=== PATIENT | male | born 1945 | race Caucasian/White ===

== ENCOUNTER 2017-07-27 09:28 | Observation (INO) ==
--- NOTE | 2017-07-27 09:55 | Emergency Department Note ---
Disposition Clinical Impression: Elevated troponin Chest pain Qualifiers: Chest pain type: unspecified Qualified Code(s): R07.9 - Chest pain, unspecified Disposition: Admitted As Inpatient Condition: Fair Referrals: NONE,PCP [Primary Care Provider] - Forms: ED Satisfaction Letter, Work/School Release General Adult HPI - General Chief complaint: ED General Medical Stated complaint: "not feeling well, out of meds" Time Seen by Provider: 07/27/17 09:33 Source: patient, EMS Limitations: no limitations - History of Present Illness HPI Narrative: 71 M c PMHx of arthritis, atrial fibrillation, cancer, COPD, hypertension, seizures, thyroid disease, and Bipolar Disorder, Homelessness reports to the ED c/o of being out of his medications and being "tired, hungry, and cold." He reports intermittent sharp left sided chest pain, SOB, Syncope. Patient reports right now he is not having any chest pain. His only complaint at this time is that his extremities are sore and he is hungry. He is a poor historian. He was seen on 06/13/17 at [facility] for same complaint of being out of his medications. Patient was established at a residential upon discharge at that time. Patient reports he left the residential because they would not let him smoke or do what he wanted when he wanted. Patient has a adult protective caseworker at the [facility]. He called them this morning and they told him to come into the ED. Per our rn social services patient is hooked up Pain Scale: 0 - Related Data Home Medications Medication Instructions Recorded Confirmed Acetaminophen [Tylenol] 650 mg PO Q6HR PRN 07/27/17 07/27/17 Albuterol Sulfate [Ventolin Hfa] 2 puff IH QID PRN 07/27/17 07/27/17 Fluticasone/Vilanterol [Breo 1 each IH DAILY 07/27/17 07/27/17 Ellipta 100-25 Mcg INH] Ipratropium [Atrovent Inhaler] 2 puff IH Q6HR PRN 07/27/17 07/27/17 LevETIRAcetam [Keppra] 500 mg PO BID 07/27/17 07/27/17 Levothyroxine [Synthroid] 100 mcg PO DAILY 07/27/17 07/27/17 Lisinopril [Zestril] 20 mg PO DAILY 07/27/17 07/27/17 Metoprolol Tartrate 25 mg PO BID 07/27/17 07/27/17 Mupirocin Calcium [Bactroban] 15 gm TP DAILY 07/27/17 07/27/17 Polyethylene Glycol 3350 [MiraLAX] 17 gm PO DAILY 07/27/17 07/27/17 Triamcinolone Acet 0.1% CRM 1 appl TP DAILY 07/27/17 07/27/17 [Kenalog] Warfarin [Coumadin] 7.5 mg PO DAILY 07/27/17 07/27/17 Allergies Allergy/AdvReac Type Severity Reaction Status Date / Time No Known Allergies Allergy Verified 06/13/17 20:01 Past Medical History - Past Medical History Medical history: Reports: arthritis, atrial fibrillation, cancer, COPD, hypertension, seizures, thyroid disease, other Psychiatric history: Reports: bipolar - Social History Smoking Status: Current every day smoker Smokeless Tobacco Status: No Alcohol use: Reports: rarely Drug use: Reports: none Physical Exam - General Limitations: no limitations General appearance: alert, in no apparent distress - Head Head exam: atraumatic, normocephalic - Eye Eye exam: Present: PERRL, EOMI - ENT ENT exam: normal oropharynx, mucous membranes dry - Neck Neck exam: Present: full ROM, trachea midline - Chest Chest inspection: Present: symmetric chest wall rise. Absent: tenderness - Respiratory Respiratory exam: Present: normal lung sounds bilaterally. Absent: respiratory distress - Cardiovascular Cardiovascular exam: Present: regular rate, normal rhythm, normal heart sounds - Abdominal Exam Abdominal exam: Present: soft, tenderness Abdominal tenderness: Present: diffuse - Extremities Exam Extremities exam: Present: full ROM. Absent: pedal edema - Neurological Exam Neurological exam: Present: alert - Psychiatric Psychiatric exam: Present: normal affect, normal mood - Skin Skin exam: Present: warm, dry Course Course Narrative: Will run basic work up for vague general complaints. CBC, BMP, UA, CXR, EKG, Troponin Will need social work consult - Reevaluation(s) Reevaluation #1: Troponin 0.06 no prior labs in our system not in out patient system at all. Will give ASA, Trend Troponin. Will check CT head and CT abd for his headache and belly pain. Likely will require admission. Reevaluation #2: CT head and Abd negative. awaiting call back from hospitalist for admission. Vital Signs Temperature 98 F 07/27/17 09:34 Pulse Rate 72 07/27/17 09:34 Respiratory Rate 18 07/27/17 09:34 Blood Pressure 121/76 07/27/17 09:34 O2 Sat by Pulse Oximetry 92 07/27/17 09:34 Temperature 98 F 07/27/17 09:34 Pulse Rate 68 07/27/17 13:07 Respiratory Rate 16 07/27/17 13:07 Blood Pressure 157/90 07/27/17 13:07 O2 Sat by Pulse Oximetry 97 07/27/17 13:07 Oxygen Delivery Oxygen Delivery Room Air Medical Decision Making - MDM Narrative Medical decision making narrative: Patient is homeless gentleman with a myriad of complaints. Patient reports chest pain yesterday. Troponin 0.06 no prior for comparrison. Hypernatremic, hypochloremic. Will admit to hospitalist for full cardiac work up. - Lab Data Lab results reviewed: Yes I reviewed the patient's lab results. Result diagrams: 07/27/17 10:12 07/27/17 10:12 Lab Results 07/27/17 07/27/17 07/27/17 Range/Units 10:12 10:12 10:12 WBC 6.8 (4.3-11.1) K/mcL RBC 3.71 L (4.19-5.50) M/mcL Hgb 11.5 L (12.9-16.9) g/dL Hct 33.9 L (37.5-50.1) % MCV 91.4 (83.0-100.0) fL MCH 31.0 (28.0-33.3) pg MCHC 33.9 (31.6-35.5) g/dL RDW 12.4 (11.5-14.5) % Plt Count 219 (140-400) K/mcL MPV 9.8 (9.4-12.4) fL Immature Gran % 0.4 (0-4) % Seg Neutrophils % 70.3 % Lymphocytes % 12.3 % Monocytes % 12.9 % Eosinophils % 3.7 % Basophils % 0.4 % Neutrophils # 4.8 (1.6-8.9) K/mcL Lymphocytes # 0.8 (0.6-4.6) K/mcL Monocytes # 0.9 (0.0-1.3) K/mcL Eosinophils # 0.3 (0.0-0.6) K/mcL Basophils # 0.0 (0.0-0.2) K/mcL Sodium 127 L (136-145) mEq/L Potassium 4.3 (3.5-5.1) mEq/L Chloride 95 L (98-107) mEq/L Carbon Dioxide 26 (23-29) mEq/L BUN 18 (8-23) mg/dL Creatinine 0.77 (0.70-1.30) mg/dL Est GFR ( Amer) > 60 (> 60) Est GFR (Non-Af Amer) > 60 (> 60) BUN/Creatinine Ratio 23 (6-26) Glucose 90 (70-105) mg/dL Calculated Osmolality 265 L (280-300) Calcium 9.6 (8.6-10.3) mg/dL Total Bilirubin 0.6 (0.3-1.0) mg/dL AST 18 (13-39) Units/L ALT 10 (7-52) Units/L Alkaline Phosphatase 95 (34-104) Units/L Troponin I 0.06 H* (< 0.04) ng/mL Serum Total Protein 6.9 (6.4-8.9) g/dL Albumin 3.9 (3.5-5.7) g/dL Globulin 3.0 (2.4-3.5) g/dL Albumin/Globulin Ratio 1.3 (1.1-2.2) Urine Color (Yellow) Urine Clarity (Clear) Urine pH (5.0-8.0) pH Units Ur Specific [place] (1.010-1.025) Urine Protein (Neg-Trace) mg/dL Urine Glucose (UA) (Normal) mg/dL Urine Ketones (Negative) mg/dL Urine Blood (Negative) Urine Nitrite (Negative) Urine Bilirubin (Negative) Urine Urobilinogen (Normal) mg/dL Ur Leukocyte Esterase (Negative) Urine Microscopic RBC (0-3) per hpf Urine Microscopic WBC (0-3) per hpf Ur Squamous Epith Cells (None-Few) per lpf Urine Bacteria (None-Few) per hpf Hyaline Casts (None-Few) per lpf Ur Culture Indicated? (NO) 07/27/17 Range/Units 11:50 WBC (4.3-11.1) K/mcL RBC (4.19-5.50) M/mcL Hgb (12.9-16.9) g/dL Hct (37.5-50.1) % MCV (83.0-100.0) fL MCH (28.0-33.3) pg MCHC (31.6-35.5) g/dL RDW (11.5-14.5) % Plt Count (140-400) K/mcL MPV (9.4-12.4) fL Immature Gran % (0-4) % Seg Neutrophils % % Lymphocytes % % Monocytes % % Eosinophils % % Basophils % % Neutrophils # (1.6-8.9) K/mcL Lymphocytes # (0.6-4.6) K/mcL Monocytes # (0.0-1.3) K/mcL Eosinophils # (0.0-0.6) K/mcL Basophils # (0.0-0.2) K/mcL Sodium (136-145) mEq/L Potassium (3.5-5.1) mEq/L Chloride (98-107) mEq/L Carbon Dioxide (23-29) mEq/L BUN (8-23) mg/dL Creatinine (0.70-1.30) mg/dL Est GFR ( Amer) (> 60) Est GFR (Non-Af Amer) (> 60) BUN/Creatinine Ratio (6-26) Glucose (70-105) mg/dL Calculated Osmolality (280-300) Calcium (8.6-10.3) mg/dL Total Bilirubin (0.3-1.0) mg/dL AST (13-39) Units/L ALT (7-52) Units/L Alkaline Phosphatase (34-104) Units/L Troponin I (< 0.04) ng/mL Serum Total Protein (6.4-8.9) g/dL Albumin (3.5-5.7) g/dL Globulin (2.4-3.5) g/dL Albumin/Globulin Ratio (1.1-2.2) Urine Color Yellow (Yellow) Urine Clarity Clear (Clear) Urine pH 7.0 (5.0-8.0) pH Units Ur Specific [place] 1.010 (1.010-1.025) Urine Protein 100 H (Neg-Trace) mg/dL Urine Glucose (UA) Normal (Normal) mg/dL Urine Ketones Negative (Negative) mg/dL Urine Blood Trace H (Negative) Urine Nitrite Negative (Negative) Urine Bilirubin Negative (Negative) Urine Urobilinogen Normal (Normal) mg/dL Ur Leukocyte Esterase Negative (Negative) Urine Microscopic RBC 0-3 (0-3) per hpf Urine Microscopic WBC 3-5 H (0-3) per hpf Ur Squamous Epith Cells Many H (None-Few) per lpf Urine Bacteria None Seen (None-Few) per hpf Hyaline Casts None Seen (None-Few) per lpf Ur Culture Indicated? NO (NO) - Radiology Data Radiology results reviewed: Yes I reviewed the patient's radiology results. - EKG Data EKG #1 EKG attestation: Yes I reviewed and interpreted this EKG. EKG results narrative: EKG 07/27/17 10:18 Sinus Rhythm, Rate 70 bpm, CT 159, QRS 93, QT/QTc 416/437 Occassional PVCs, no prior for comparison. Attestation Statement - Attestation Attestation: I, Pierce Bolden DO, examined this patient [id number] and my medical decision-making was reviewed with Surya Pryor PGY-1 Resident Physician. I agree with the documented findings, disposition and treatment plan as described except to the extent set forth below. Please see my progress notes for details.
[2017-07-27 10:52] LABS: Basophils % 0.4 %; Eosinophils # 0.3 K/mcL (0.0-0.6); Eosinophils % 3.7 %; Hematocrit 33.9 % (37.5-50.1); Hemoglobin 11.5 g/dL (12.9-16.9); Immature Granulocytes % 0.4 % (0-4); Lymphocytes # 0.8 K/mcL (0.6-4.6); Lymphocytes % 12.3 %; Mean Corpuscular HGB Conc 33.9 g/dL (31.6-35.5); Mean Corpuscular Volume 91.4 fL (83.0-100.0); Mean Platelet Volume 9.8 fL (9.4-12.4); Monocytes # 0.9 K/mcL (0.0-1.3); Monocytes % 12.9 %; Neutrophils # 4.8 K/mcL (1.6-8.9); Platelet Count 219 K/mcL (140-400); Red Blood Count 3.71 M/mcL (4.19-5.50); Red Cell Distribution Width 12.4 % (11.5-14.5); Segmented Neutrophils % 70.3 %
[2017-07-27 11:09] LABS: Alanine Aminotransferase 10 Units/L (7-52); Albumin 3.9 g/dL (3.5-5.7); Albumin/Globulin Ratio 1.3 (1.1-2.2); Alkaline Phosphatase 95 Units/L (34-104); Aspartate Amino Transferase 18 Units/L (13-39); BUN/Creatinine Ratio 23 (6-26); Bilirubin,Total 0.6 mg/dL (0.3-1.0); Blood Urea Nitrogen 18 mg/dL (8-23); Calcium 9.6 mg/dL (8.6-10.3); Carbon Dioxide 26 mEq/L (23-29); Chloride 95 mEq/L (98-107); Glucose 90 mg/dL (70-105); Osmolality,Calculated 265 (280-300); Potassium 4.3 mEq/L (3.5-5.1); Sodium 127 mEq/L (136-145); Total Protein 6.9 g/dL (6.4-8.9); eGFR For African Americans > 60 (> 60); eGFR For Non-African Americans > 60 (> 60)
[2017-07-27] MEDS ORDERED: Aspirin 81 MG TAB.CHEW PO STA (11:13)
--- NOTE | 2017-07-27 12:05 | Emergency Department Note ---
Disposition Clinical Impression: Elevated troponin, Chest pain Disposition: Admitted As Inpatient Condition: Fair Referrals: NONE,PCP [Primary Care Provider] - Forms: ED Satisfaction Letter, Work/School Release Time of Disposition: 13:04 General Adult HPI - General Chief complaint: ED General Medical Stated complaint: "not feeling well, out of meds" Time Seen by Provider: 07/27/17 09:33 Source: patient, EMS Limitations: no limitations - History of Present Illness Pain Scale: 0 - Related Data Home Medications Medication Instructions Recorded Confirmed Acetaminophen [Tylenol] 650 mg PO Q6HR PRN 07/27/17 07/27/17 Albuterol Sulfate [Ventolin Hfa] 2 puff IH QID PRN 07/27/17 07/27/17 Fluticasone/Vilanterol [Breo 1 each IH DAILY 07/27/17 07/27/17 Ellipta 100-25 Mcg INH] Ipratropium [Atrovent Inhaler] 2 puff IH Q6HR PRN 07/27/17 07/27/17 LevETIRAcetam [Keppra] 500 mg PO BID 07/27/17 07/27/17 Levothyroxine [Synthroid] 100 mcg PO DAILY 07/27/17 07/27/17 Lisinopril [Zestril] 20 mg PO DAILY 07/27/17 07/27/17 Metoprolol Tartrate 25 mg PO BID 07/27/17 07/27/17 Mupirocin Calcium [Bactroban] 15 gm TP DAILY 07/27/17 07/27/17 Polyethylene Glycol 3350 [MiraLAX] 17 gm PO DAILY 07/27/17 07/27/17 Triamcinolone Acet 0.1% CRM 1 appl TP DAILY 07/27/17 07/27/17 [Kenalog] Warfarin [Coumadin] 7.5 mg PO DAILY 07/27/17 07/27/17 Allergies Allergy/AdvReac Type Severity Reaction Status Date / Time No Known Allergies Allergy Verified 06/13/17 20:01 Past Medical History - Past Medical History Medical history: Reports: arthritis, atrial fibrillation, cancer, COPD, hypertension, seizures, thyroid disease, other Psychiatric history: Reports: bipolar - Social History Smoking Status: Current every day smoker Smokeless Tobacco Status: No Alcohol use: Reports: rarely Drug use: Reports: none Physical Exam - General Limitations: no limitations General appearance: alert, in no apparent distress Course Vital Signs Temperature 98 F 07/27/17 09:34 Pulse Rate 72 07/27/17 09:34 Respiratory Rate 18 07/27/17 09:34 Blood Pressure 121/76 07/27/17 09:34 O2 Sat by Pulse Oximetry 92 07/27/17 09:34 Temperature 98 F 07/27/17 09:34 Pulse Rate 68 07/27/17 10:24 Respiratory Rate 16 07/27/17 10:24 Blood Pressure 121/76 07/27/17 10:24 O2 Sat by Pulse Oximetry 97 07/27/17 10:24 Oxygen Delivery Oxygen Delivery Room Air Medical Decision Making - Lab Data Result diagrams: 07/27/17 10:12 07/27/17 10:12 Lab Results 07/27/17 07/27/17 07/27/17 Range/Units 10:12 10:12 10:12 WBC 6.8 (4.3-11.1) K/mcL RBC 3.71 L (4.19-5.50) M/mcL Hgb 11.5 L (12.9-16.9) g/dL Hct 33.9 L (37.5-50.1) % MCV 91.4 (83.0-100.0) fL MCH 31.0 (28.0-33.3) pg MCHC 33.9 (31.6-35.5) g/dL RDW 12.4 (11.5-14.5) % Plt Count 219 (140-400) K/mcL MPV 9.8 (9.4-12.4) fL Immature Gran % 0.4 (0-4) % Seg Neutrophils % 70.3 % Lymphocytes % 12.3 % Monocytes % 12.9 % Eosinophils % 3.7 % Basophils % 0.4 % Neutrophils # 4.8 (1.6-8.9) K/mcL Lymphocytes # 0.8 (0.6-4.6) K/mcL Monocytes # 0.9 (0.0-1.3) K/mcL Eosinophils # 0.3 (0.0-0.6) K/mcL Basophils # 0.0 (0.0-0.2) K/mcL Sodium 127 L (136-145) mEq/L Potassium 4.3 (3.5-5.1) mEq/L Chloride 95 L (98-107) mEq/L Carbon Dioxide 26 (23-29) mEq/L BUN 18 (8-23) mg/dL Creatinine 0.77 (0.70-1.30) mg/dL Est GFR ( Amer) > 60 (> 60) Est GFR (Non-Af Amer) > 60 (> 60) BUN/Creatinine Ratio 23 (6-26) Glucose 90 (70-105) mg/dL Calculated Osmolality 265 L (280-300) Calcium 9.6 (8.6-10.3) mg/dL Total Bilirubin 0.6 (0.3-1.0) mg/dL AST 18 (13-39) Units/L ALT 10 (7-52) Units/L Alkaline Phosphatase 95 (34-104) Units/L Troponin I 0.06 H* (< 0.04) ng/mL Serum Total Protein 6.9 (6.4-8.9) g/dL Albumin 3.9 (3.5-5.7) g/dL Globulin 3.0 (2.4-3.5) g/dL Albumin/Globulin Ratio 1.3 (1.1-2.2) Urine Color (Yellow) Urine Clarity (Clear) Urine pH (5.0-8.0) pH Units Ur Specific [place] (1.010-1.025) Urine Protein (Neg-Trace) mg/dL Urine Glucose (UA) (Normal) mg/dL Urine Ketones (Negative) mg/dL Urine Blood (Negative) Urine Nitrite (Negative) Urine Bilirubin (Negative) Urine Urobilinogen (Normal) mg/dL Ur Leukocyte Esterase (Negative) Urine Microscopic RBC (0-3) per hpf Urine Microscopic WBC (0-3) per hpf Ur Squamous Epith Cells (None-Few) per lpf Urine Bacteria (None-Few) per hpf Hyaline Casts (None-Few) per lpf Ur Culture Indicated? (NO) 07/27/17 Range/Units 11:50 WBC (4.3-11.1) K/mcL RBC (4.19-5.50) M/mcL Hgb (12.9-16.9) g/dL Hct (37.5-50.1) % MCV (83.0-100.0) fL MCH (28.0-33.3) pg MCHC (31.6-35.5) g/dL RDW (11.5-14.5) % Plt Count (140-400) K/mcL MPV (9.4-12.4) fL Immature Gran % (0-4) % Seg Neutrophils % % Lymphocytes % % Monocytes % % Eosinophils % % Basophils % % Neutrophils # (1.6-8.9) K/mcL Lymphocytes # (0.6-4.6) K/mcL Monocytes # (0.0-1.3) K/mcL Eosinophils # (0.0-0.6) K/mcL Basophils # (0.0-0.2) K/mcL Sodium (136-145) mEq/L Potassium (3.5-5.1) mEq/L Chloride (98-107) mEq/L Carbon Dioxide (23-29) mEq/L BUN (8-23) mg/dL Creatinine (0.70-1.30) mg/dL Est GFR ( Amer) (> 60) Est GFR (Non-Af Amer) (> 60) BUN/Creatinine Ratio (6-26) Glucose (70-105) mg/dL Calculated Osmolality (280-300) Calcium (8.6-10.3) mg/dL Total Bilirubin (0.3-1.0) mg/dL AST (13-39) Units/L ALT (7-52) Units/L Alkaline Phosphatase (34-104) Units/L Troponin I (< 0.04) ng/mL Serum Total Protein (6.4-8.9) g/dL Albumin (3.5-5.7) g/dL Globulin (2.4-3.5) g/dL Albumin/Globulin Ratio (1.1-2.2) Urine Color Yellow (Yellow) Urine Clarity Clear (Clear) Urine pH 7.0 (5.0-8.0) pH Units Ur Specific [place] 1.010 (1.010-1.025) Urine Protein 100 H (Neg-Trace) mg/dL Urine Glucose (UA) Normal (Normal) mg/dL Urine Ketones Negative (Negative) mg/dL Urine Blood Trace H (Negative) Urine Nitrite Negative (Negative) Urine Bilirubin Negative (Negative) Urine Urobilinogen Normal (Normal) mg/dL Ur Leukocyte Esterase Negative (Negative) Urine Microscopic RBC 0-3 (0-3) per hpf Urine Microscopic WBC 3-5 H (0-3) per hpf Ur Squamous Epith Cells Many H (None-Few) per lpf Urine Bacteria None Seen (None-Few) per hpf Hyaline Casts None Seen (None-Few) per lpf Ur Culture Indicated? NO (NO) Attestation Statement - Attestation Attestation: I, Pierce Bolden DO, examined this patient [id number] and my medical decision-making was reviewed with Surya Pryor PGY-1 Resident Physician. I agree with the documented findings, disposition and treatment plan as described except to the extent set forth below. Please see my progress notes for details. 71-year-old male presents to the emergency room secondary to feeling tired and worn out hungry and does not have any of his home medications. He also several other vague complaints including some intermittent chest discomfort some nausea and abdominal pain and generalized malaise. Patient is currently homeless. He has been placed in a residential in the past for which she signed out secondary to them not allowing him to smoke when he wanted to. Patient is alert is oriented follows commands. Is very thin and frail. Vital signs appear to be stable on presentation. Patient did describe chest pain on and off yesterday. Patient will have cardiac evaluation along with electrolytes and urinalysis. For any other potential etiology considering the patient does not have ability to convey appropriate medical history at this time. He is alert is oriented follows commands mother's concern for him not providing with appropriate information. Patient will have this workup established this time. Otherwise his physical exam is unremarkable. At this time is denying chest pain shortness of breath headache vision changes nausea vomiting or diarrhea. Denies any trauma or injury. Denies any falls. He has not been taking his medication for quite a while. He was previously on Keppra secondary to seizures but he has not taken that medication for a while. See detailed documentation of the physical exam, medical intervention, medical decision- making and disposition in the resident physician's note. No critical care provider the patient's treatment course at this time. 1200 EKG shows stable rhythm at this time. No acute pathology when compared to previous. Labs do show an elevated troponin here today. This is concerning compared considering the patient does describe some chest discomfort and pain yesterday. Patient will be admitted for ACS rule out. The patient's records from the [facility] will be collected. Hospitals will be patient admission process at this time. Patient is otherwise asymptomatic resting comfortably in the bed. Aspirin will be given. CT imaging of the head and abdomen are still pending at this time. Admission process to be completed patient does have hyponatremia and hypochloremia. CT imaging of the head and abdomen were added on secondary to the abdominal pain the patient's complaint of headache and dizziness over the last several days. 1245 Hospitalist was contacted. Imaging of the head and and abdomen were reviewed. Labs are only remarkable for the elevated troponin. Records from the [facility] to be collected. Admission process to be completed for chest pain complaints as well as elevated troponin. Patient has not had any chest pain here in the emergency room or even today. Patient does not require any other intervention at this point
[2017-07-27 12:08] LABS: Bilirubin,Urine Negative (Negative); Blood,Urine Trace (Negative); Clarity,Urine Clear (Clear); Color,Urine Yellow (Yellow); Glucose,Urine (UA) Normal (Normal); Ketones,Urine Negative (Negative); Leukocyte Esterase,Urine Negative (Negative); Nitrite,Urine Negative (Negative); Protein,Urine 100 mg/dL (Neg-Trace); Urobilinogen,Urine Normal (Normal)
[2017-07-27 12:11] LABS: Bacteria,Urine None Seen per hpf (None-Few); Hyaline Casts,Urine None Seen per lpf (None-Few); RBC,Urine 0-3 per hpf (0-3); Squamous Epithelial Cell,Urine Many per lpf (None-Few)
[2017-07-27] MEDS ORDERED: Ipratropium 1 PUFF INHALER IH PRN (14:34)
[2017-07-27] MEDS ORDERED: Acetaminophen 325 MG TABLET PO PRN (14:34)
[2017-07-27] MEDS ORDERED: Naloxone 0.4 MG/ML INJ IVP PRN (14:39)
--- NOTE | 2017-07-27 15:42 | Internal Med History&Physical ---
Date of Encounter: 07/27/17 Time of Encounter: 13:30 Internal Medicine - H&P: HPI Chief complaint: Not feeling well for for a month Admitted From: Emergency Dept Plans for Post Hospital Care: Home History of present illness: Mr. Santos is a 71 year old male w/PMH of arthritis, A. fib, cancer, COPD, HTN, seizures, and thyroid disease presents from the ED with chief complaint of not feeling well for the past month and being out of his medications since June 13. Pt. reports living in [facility] previously but states he is now homeless. Reports he has not felt well for the past month d/t not having his medications. States he needs help w/living conditions and being able to get his medications. Pt. reports melanotic stool several weeks ago and weakness but denies recent illness, fever, chills, nausea, vomiting, chest pain, shortness of breath, changes in vision, headache, abdominal pain, dizziness, lightheadedness, numbness, tingling, pre-syncope, or syncope. Past Med Surg Social Fam HX - Past Medical History Source: patient, old records reviewed Medical history: arthritis, atrial fibrillation, cancer, COPD, hypertension, seizures, thyroid disease, other Psychiatric history: bipolar - Social History Smoking Status: Current every day smoker Packs per day: 8 cigarettes a day Smokeless Tobacco Status: No Alcohol use: rarely Drug use: none Current living situation: Homeless Activity Level: Independent ambulation Recent Out of Country Travel Within the Last 8 Weeks: No Exposure or Possible Exposure to Illness During Travel: No - Family History Father Race: Family Member Ethnicity: Non- Living Status: Age at : 54 Cause of : Cirrhosis Mother Race: Family Member Ethnicity: Non- Living Status: Age at : 59 Cause of : Emphysema Hx Family Respiratory Disorders: Yes (Emphysema) Brother Race: Family Member Ethnicity: Non- Living Status: Age at : 42 Cause of : Lymphoma Hx Family Cancer: Yes (Lymphoma) Sister Race: Family Member Ethnicity: Non- Living Status: Still Living Hx Family Medical Disorders: No Internal Medicine - H&P: Meds Acetaminophen [Tylenol] 650 mg PO Q6HR PRN 07/27/17 [History] Albuterol Sulfate [Ventolin Hfa] 2 puff IH QID PRN 07/27/17 [History] Fluticasone/Vilanterol [Breo Ellipta 100-25 Mcg INH] 1 puff IH DAILY 07/27/17 [ History] Ipratropium [Atrovent Inhaler] 2 puff IH Q6HR PRN 07/27/17 [History] LevETIRAcetam [Keppra] 500 mg PO BID 07/27/17 [History] Levothyroxine [Synthroid] 100 mcg PO DAILY 07/27/17 [History] Lisinopril [Zestril] 20 mg PO DAILY 07/27/17 [History] Metoprolol Tartrate 25 mg PO BID 07/27/17 [History] Mupirocin Calcium [Bactroban] 1 appl TP DAILY 07/27/17 [History] Polyethylene Glycol 3350 [MiraLAX] 17 gm PO DAILY 07/27/17 [History] Triamcinolone Acet 0.1% CRM [Kenalog] 1 appl TP DAILY 07/27/17 [History] Warfarin [Coumadin] 7 mg PO DAILY 07/27/17 [History] 3 Allergy/AdvReac Type Severity Reaction Status Date / Time No Known Allergies Allergy Verified 06/13/17 20:01 All Systems PM: A 10-system review of systems was performed and is negative for pertinent findings except as documented above in the HPI. - Constitutional Constitutional: as per HPI, weakness, no chills, no fever(s), no night sweats - EENT Eyes: no change in vision, no discharge, no pain, no photophobia Ears: no ear discharge, no ear pain, no tinnitus Nose, mouth and throat: no dysphagia, no nasal discharge, no neck pain, no sore throat - Breasts Breasts: as per HPI - Cardiovascular Cardiovascular ROS IM: no chest pain, no diaphoresis, no dyspnea, no lightheadedness, no palpitations, no syncope - Respiratory Respiratory: no cough, no dyspnea, no wheezing, no excessive phlegm production - Gastrointestinal Gastrointestinal: melena (Several weeks ago), no abdominal pain, no diarrhea, no hematemesis, no hematochezia, no nausea, no vomiting - Genitourinary Genitourinary ROS male: as per HPI - Musculoskeletal Musculoskeletal ROS IM: no numbness, no tingling - Integumentary Integumentary IM: no rash, no unusual bruising - Neurological Neurological ROS: no confusion, no convulsions, no focal weakness, no numbness, no tingling, no tremor(s) - Psychiatric Psychiatric: as per HPI, depression (Bipolar) - Endocrine Endocrine IM: as per HPI - Hematologic/Lymphatic Hematologic/Lymphatic: no easy bruising - Allergic/Immunologic Allergic/Immunologic: as per HPI - Constitutional Vitals: Temp Pulse Resp BP Pulse Ox 97.5 F L 60 17 130/82 98 07/27/17 14:04 07/27/17 14:04 07/27/17 14:04 07/27/17 14:04 07/27/17 14:04 General appearance: Present: cooperative, A&O X 3, pleasant, no acute distress, underweight, answers questions appropriately - Head Head exam: Present: atraumatic, normocephalic - Eye Eye exam: Present: PERRL, conjuntiva pink, sclera anicteric Pupils: Present: PERRL - ENT ENT exam: Present: normal exam - Neck Neck exam general surgery: Present: normal inspection, supple, trachea midline. Absent: lymphadenopathy - Respiratory Respiratory exam: Present: CTAB. Absent: accessory muscle use, rales, rhonchi, wheezes - Cardiovascular Cardiovascular exam: Present: RRR, +S1, +S2. Absent: diastolic murmur, gallop, rubs, systolic murmur - GI/Abdominal GI/Abdominal exam: Present: normal bowel sounds, soft, no peritoneal signs. Absent: distended, tenderness - Rectal Rectal exam: Present: deferred - Additional comments: exam deferred. - Extremities Exam Extremities exam: Present: warm, radial pulses palpable and symmetrical. Absent : calf tenderness, cyanotic, pedal edema - Back Exam Back exam: Present: normal inspection - Neurological Exam Neurological exam: Present: CN II-XII intact, oriented X3, no focal deficits. Absent: pronater drift, facial droop, speech deficit - Psychiatric Psychiatric exam: Present: anxious - Skin Skin exam: Present: dry, intact Internal Med - H&P Results - Labs CBC & Chem 7: 07/27/17 10:12 07/27/17 10:12 - EKG Data EKG shows normal: sinus rhythm - EKG Data Prior EKG available for review: no EKG comments: 07/27/17 15:49 EKG dated 07/27/17 shows sinus rhythm with occasional ventricular premature complexes. - Diagnostic Studies CT scan - head Additional comments: Impressions Head CT 07/27/17 11:26 IMPRESSION: No acute intracranial abnormality. Partial opacification of the right mastoid air cells. D/ / 07/27/2017 12:53:47 Biju Lake MD / [email or web address] Interpreting Provider: Biju Lake MD CT scan - abdomen Additional comments: Impressions Abdomen/Pelvis CT 07/27/17 11:26 IMPRESSION: No acute intra-abdominal or pelvic process. D/ / 07/27/2017 12:56:20 Christiano Miller MD / [email or web address] Interpreting Provider: Christiano Miller MD Chest x-ray Additional comments: Impressions Chest X-Ray 07/27/17 09:55 IMPRESSION: Normal chest x-ray D/ / Christiano Miller MD / Christiano Miller MD Interpreting Provider: Christiano Miller MD - Assessment and plan (1) Homeless Current Visit: Yes Status: Acute Assessment and plan: Acute homelessness. Pt. reports living in [facility] previously but was kicked out d/t his smoking. Has not taken medications since 06/13/17. SW consult ordered to help patient find living conditions and address insurance needs so pt. can have access to his medications. Pt. reports not feeling well for the past month. BMI is 20.8. States he has not been eating/drinking consistently. 0.9 NS IV fluids @ 100 mL/HR to address current dehydration. Nutrition consult. Cardiac diet. Continue pts. medications. Falls/safety precautions, up with assist, bed rest w/bathroom privileges w/assist only. Pt. discussed w/Dr. Mendoza who agrees w/plan of care. Pt. is moderate risk for further morbidity d/ t not taking medications for over 1 month, current dehydration and malnourishment, current homelessness, electrolyte imbalance, hx, and risk factors. Observation. (2) Unable to take medication Current Visit: Yes Status: Acute Assessment and plan: Acute inability to currently take medications d/t being homeless since 06/13/17. SW consult ordered to assess patient for placement/living conditions and insurance needs to be able to afford his medications. Pt. has hx of Afib on Coumadin, HTN, seizures, and COPD. Will continue pts. medications. (3) Elevated troponin Current Visit: Yes Status: Acute Assessment and plan: Acutely elevated troponin of 0.06 on admission. Pt. denies CP or SOB. Trend x2. Echocardiogram. Pt. currently on Coumadin. Will continue w/Pharmacy dosing. Continuous cardiac telemetry. Consider Cardiology consult if troponins increase and/or pt. begins having CP/cardiac sx. (4) Hyponatremia Current Visit: Yes Status: Acute Assessment and plan: Acute hyponatermia on admission w/sodium of 127. 0.9 NS IV fluids @ 100 mL/HR. Monitor f/u labs to ensure sodium does not rise >8 mEq daily. Continuous cardiac telemetry. (5) Hypochloremia Current Visit: Yes Status: Acute Assessment and plan: Acute hypochloremia w/chloride of 95 on admission. 0.9 NS IV fluids @ 100 mL/ HR. Monitor f/u labs. (6) Anemia Current Visit: Yes Status: Chronic Assessment and plan: Hx of chronic anemia. Pt. reports melanotic stool several weeks ago. Currently takes Coumadin for atrial fibrillation. Fecal hemoccult ordered. Monitor pt. and f/u labs for H/H and signs of bleeding. Qualifiers: Anemia type: unspecified type Qualified Code(s): D64.9 - Anemia, unspecified (7) COPD (chronic obstructive pulmonary disease) Current Visit: Yes Status: Chronic Assessment and plan: Hx of chronic COPD. Stable. Xopenex 1.25 IH Q6HR. Supplemental O2 w/titration and SpO2 monitoring PRN. Qualifiers: COPD type: unspecified COPD Qualified Code(s): J44.9 - Chronic obstructive pulmonary disease, unspecified (8) Atrial fibrillation Current Visit: Yes Status: Chronic Assessment and plan: Hx of chronic paroxysmal atrial fibrillation. Continue pts. Coumadin w/Pharmacy dosing. Continuous cardiac telemetry. Echocardiogram. Qualifiers: Atrial fibrillation type: paroxysmal Qualified Code(s): I48.0 - Paroxysmal atrial fibrillation (9) HTN (hypertension) Current Visit: Yes Status: Chronic Assessment and plan: Hx of chronic HTN. Monitor pt. and VS. Continue pts. Lisinopril and metoprolol. Qualifiers: Hypertension type: essential hypertension Qualified Code(s): I10 - Essential (primary) hypertension (10) Seizures Current Visit: Yes Status: Chronic Assessment and plan: Hx of chronic seizures. Currently stable. Continue pts. Keppra. (11) Thyroid disease Current Visit: Yes Status: Chronic Assessment and plan: Hx of chronic thyroid disease. TSH and Free T4 in a.m. labs. Continue pts. Synthroid. (12) DVT prophylaxis Current Visit: Yes Status: Acute Assessment and plan: Continue patient's Coumadin with pharmacy dosing for DVT prophylaxis. Monitor patient for signs of bleeding. - Time Spent With Patient Total time spent is greater than 50% in coordination of care (as documented) at patient's floor/unit and/or counseling patient: Greater than 35 minutes
[2017-07-27 17:55] LABS: INR 1.9; Prothrombin Time 20.6 Seconds (9.4-12.1)
[2017-07-27] MEDS ORDERED: Warfarin perPT PO PRN (18:00)
[2017-07-27] MEDS ORDERED: Warfarin 4 MG, Warfarin 3 MG PO ONE (18:00)
[2017-07-27] MEDS: 0.9 % Sodium Chloride 1,000 ML IVC SCH (19:18)
[2017-07-27] MEDS: levETIRAcetam 250 MG TABLET PO SCH (20:41)
[2017-07-27 21:11] LABS: Amphetamine Screen,Urine Negative ng/mL (Cutoff=1000); Barbiturate Screen,Urine Negative ng/mL (Cutoff=200); Benzodiazepines Screen,Urine Negative ng/mL (Cutoff=200); Cannabinoid Screen,Urine Negative ng/mL (Cutoff = 50); Cocaine Screen,Urine Negative ng/mL (Cutoff= 300); Opiate Screen,Urine Negative ng/mL (Cutoff=300); Phencyclidine Screen,Urine Negative ng/mL (Cutoff=25)
[2017-07-27] MEDS ORDERED: Budesonide/Formoterol 160/4.5 MDI IH SCH (22:00)
[2017-07-27] MEDS: Levalbuterol Neb 1.25 MG/3 ML IH SCH (22:18)
[2017-07-28] MEDS: Levalbuterol Neb 1.25 MG/3 ML IH SCH (04:17)
[2017-07-28] MEDS: 0.9 % Sodium Chloride 1,000 ML IVC SCH (05:24)
[2017-07-28 06:38] LABS: Basophils % 0.4 %; Eosinophils # 0.3 K/mcL (0.0-0.6); Eosinophils % 5.9 %; Hemoglobin 10.8 g/dL (12.9-16.9); Immature Granulocytes % 0.2 % (0-4); Lymphocytes # 1.2 K/mcL (0.6-4.6); Lymphocytes % 22.8 %; Mean Corpuscular HGB Conc 33.8 g/dL (31.6-35.5); Mean Corpuscular Hemoglobin 30.7 pg (28.0-33.3); Mean Corpuscular Volume 90.9 fL (83.0-100.0); Mean Platelet Volume 10.1 fL (9.4-12.4); Monocytes # 0.6 K/mcL (0.0-1.3); Monocytes % 12.1 %; Neutrophils # 3.1 K/mcL (1.6-8.9); Platelet Count 204 K/mcL (140-400); Red Blood Count 3.52 M/mcL (4.19-5.50); Red Cell Distribution Width 12.2 % (11.5-14.5); Segmented Neutrophils % 58.6 %
[2017-07-28 06:48] LABS: INR 1.9; Prothrombin Time 20.5 Seconds (9.4-12.1)
[2017-07-28 06:58] LABS: Alanine Aminotransferase 9 Units/L (7-52); Albumin 3.4 g/dL (3.5-5.7); Albumin/Globulin Ratio 1.3 (1.1-2.2); Alkaline Phosphatase 81 Units/L (34-104); Aspartate Amino Transferase 16 Units/L (13-39); BUN/Creatinine Ratio 29 (6-26); Bilirubin,Total 0.3 mg/dL (0.3-1.0); Blood Urea Nitrogen 15 mg/dL (8-23); Calcium 8.8 mg/dL (8.6-10.3); Carbon Dioxide 26 mEq/L (23-29); Chloride 98 mEq/L (98-107); Chol/HDL Ratio 4.1 (0-4.9); Cholesterol 132 mg/dL (< 200); Globulin 2.7 g/dL (2.4-3.5); Glucose 107 mg/dL (70-105); HDL Cholesterol 32 mg/dL (40-59); LDL Cholesterol,Calculated 85 mg/dL (0-99); Magnesium 1.7 mg/dL (1.6-2.6); Osmolality,Calculated 265 (280-300); Potassium 4.1 mEq/L (3.5-5.1); Sodium 127 mEq/L (136-145); Total Protein 6.1 g/dL (6.4-8.9); Triglycerides 73 mg/dL (< 150); eGFR For African Americans > 60 (> 60); eGFR For Non-African Americans > 60 (> 60)
[2017-07-28 07:11] LABS: Thyroid Stimulating Hormone 3.453 mcIU/mL (0.340-5.600)
[2017-07-28 07:51] VITALS: BP 146/75
[2017-07-28 08:31] LABS: Estimated Average Glucose 117 mg/dl; Hemoglobin A1C 5.7 %
[2017-07-28] MEDS ORDERED: Lisinopril 20 MG TABLET PO SCH (09:00)
[2017-07-28] MEDS ORDERED: Triamcinolone Acet 0.1% CRM 15 GM TUBE TP SCH (09:00)
[2017-07-28] MEDS ORDERED: NON-FORMULARY MEDICATION 1 EACH EACH (Fluticasone/Vilanterol [Breo Ellipta 100-25 Mcg Inh] IH SCH (09:00)
[2017-07-28 10:17] LABS: % Iron Saturation 16 % (20-55); Ferritin 156 ng/ml (20-250); Iron 47 mcg/dL (65-175); Transferrin 209 mg/dL (203-362)
[2017-07-28] MEDS: levETIRAcetam 250 MG TABLET PO SCH (10:34)
[2017-07-28] MEDS ORDERED: Warfarin 4 MG, Warfarin 3 MG PO ONE (18:00)
--- NOTE | 2017-07-28 19:46 | Discharge Summary ---
Orders not resulted at time of discharge: Pending orders 07/27/17 15:41 Fecal Hemoccult [Occult Blood,Stool] [BF] Routine 07/28/17 09:08 Osmolality,Urine [UCHEM] Stat Sodium, Urine [UCHEM] Stat Date of Encounter: 07/28/17 Time of Encounter: 11:00 - Discharge Diagnosis (1) Elevated troponin Priority: Primary Status: Acute (2) Homeless Priority: Secondary Status: Acute (3) Unable to take medication Priority: Secondary Status: Acute (4) DVT prophylaxis Priority: Secondary Status: Acute (5) Anemia Priority: Secondary Status: Chronic Qualifiers: Anemia type: unspecified type Qualified Code(s): D64.9 - Anemia, unspecified (6) Hyponatremia Priority: Secondary Status: Acute (7) Hypochloremia Priority: Secondary Status: Acute (8) COPD (chronic obstructive pulmonary disease) Priority: Secondary Status: Chronic Qualifiers: COPD type: unspecified COPD Qualified Code(s): J44.9 - Chronic obstructive pulmonary disease, unspecified (9) Atrial fibrillation Priority: Secondary Status: Chronic Qualifiers: Atrial fibrillation type: paroxysmal Qualified Code(s): I48.0 - Paroxysmal atrial fibrillation (10) HTN (hypertension) Priority: Secondary Status: Chronic Qualifiers: Hypertension type: essential hypertension Qualified Code(s): I10 - Essential (primary) hypertension (11) Seizures Priority: Secondary Status: Chronic (12) Thyroid disease Priority: Secondary Status: Chronic Hospital course: Mr. Santos is a 71 year old male past medical history of atrial fib cancer COPD hypertension seizures thyroid disease presented to the emergency department which he complained of not feeling well for the past month patient has been out of this medication since June 13. The patient is homeless apparently he was seen at [place] last month Jojo Ram placed patient at [facility] in [place]. He left the facility and is now homeless. Upon presentation he did have elevated troponin as well as hypernatremia. He denied any chest pain upon assessment. Echocardiogram and cardiac workup has been ordered. Patient requesting to go outside and smoke we did discuss that he should not smoke since he is having cardiac issues and offered patient a nicotine patch. Patient refused. Patient expressed that he wanted to leave because he is concerned about his personal belongings are in the shopping cart he is afraid they will become wet. Again advised patient that it is better that he stay here and be treated and received medications and have social media executive set him THAT he will have Coumadin medication upon discharge. Patient said he would think about it however he would probably leave before noon. I did advise patient that if he left he would be leaving AGAINST MEDICAL ADVICE and would risk injury seizure heart attack possible . Patient verbalized understanding. Was notified approximately an hour later the patient left AGAINST MEDICAL ADVICE. Discharge discussed with: patient - Time Spent with Patient Total time spent providing and/or coordinating discharge services: - Discharge Medications Home Medications: Acetaminophen [Tylenol] 650 mg PO Q6HR PRN 07/27/17 [History] Albuterol Sulfate [Ventolin Hfa] 2 puff IH QID PRN 07/27/17 [History] Fluticasone/Vilanterol [Breo Ellipta 100-25 Mcg INH] 1 puff IH DAILY 07/27/17 [ History] Ipratropium [Atrovent Inhaler] 2 puff IH Q6HR PRN 07/27/17 [History] LevETIRAcetam [Keppra] 500 mg PO BID 07/27/17 [History] Levothyroxine [Synthroid] 100 mcg PO DAILY 07/27/17 [History] Lisinopril [Zestril] 20 mg PO DAILY 07/27/17 [History] Metoprolol Tartrate 25 mg PO BID 07/27/17 [History] Mupirocin Calcium [Bactroban] 1 appl TP DAILY 07/27/17 [History] Polyethylene Glycol 3350 [MiraLAX] 17 gm PO DAILY 07/27/17 [History] Triamcinolone Acet 0.1% CRM [Kenalog] 1 appl TP DAILY 07/27/17 [History] Warfarin [Coumadin] 7 mg PO DAILY 07/27/17 [History] Allergies/Adverse Reactions: 3 Allergy/AdvReac Type Severity Reaction Status Date / Time No Known Allergies Allergy Verified 06/13/17 20:01 Date of admission: 07/27/17 13:24 Primary care physician: PCP NONE Consults: 07/27/17 14:38 Consult to It Sales Representative [CONS] Routine Reason for SW Consult: Patient reports that he is homeless and is out of his medications. Needs assessed for placement in intermediate/new living situation as well as possible insurance needs for medications. 07/27/17 15:16 Consult to It Sales Representative [CONS] Routine Reason for SW Consult: pt homeless and having trouble getting his medications. 07/27/17 16:15 Consult to Nutrition [CONS] Routine Comment: Consulting Provider: NUTRITION Reason for Dietary Consult: PO Supplementation Discharging clinician: Madeleine Soares - Constitutional Vitals: Temp Pulse Resp BP Pulse Ox 98.0 F 71 16 146/75 98 07/28/17 07:50 07/28/17 07:50 07/28/17 07:50 07/28/17 07:50 07/28/17 07:50 General appearance: Present: cooperative, A&O X 3, pleasant, no acute distress, underweight, answers questions appropriately - Head Head exam: Present: atraumatic, normocephalic - Eye Eye exam: Present: PERRL, conjuntiva pink, sclera anicteric Pupils: Present: PERRL - Neck Neck exam general surgery: Present: supple, trachea midline. Absent: lymphadenopathy - Respiratory Respiratory exam: Present: CTAB. Absent: accessory muscle use, rales, rhonchi, wheezes - Cardiovascular Cardiovascular exam: Present: RRR, +S1, +S2. Absent: diastolic murmur, gallop, rubs, systolic murmur - GI/Abdominal GI/Abdominal exam: Present: normal bowel sounds, soft, no peritoneal signs. Absent: distended, tenderness - Extremities Exam Extremities exam: Present: warm, radial pulses palpable and symmetrical. Absent : calf tenderness, cyanotic, pedal edema - Neurological Exam Neurological exam: Present: CN II-XII intact, oriented X3, no focal deficits. Absent: pronater drift, facial droop, speech deficit - Patient Status Disposition: Left Against Medical Advice Condition: Fair - Discharge Instructions Follow Up With: NONE,PCP [Primary Care Provider] -
--- NOTE | 2017-07-29 08:00 | Electrocardiograph Report ---
[address] [address] Test Date: 2017-07-27 Pat Name: Jose Santos Department: 104 Room: [facility] Gender: Receptionist Clerk: YANI : 1945 Requested By: Surya Pryor Order Number: [id number] Reading MD: Saulo Georges Measurements Intervals [place] Rate: 70 P: 91 SD: 159 QRS: 41 QRSD: 93 T: 75 QT: 416 QTc: 437 Interpretive Statements SINUS RHYTHM WITH OCCASIONAL VENTRICULAR PREMATURE COMPLEXES Electronically Signed On 07-29-2017 7:59:22 EDT by Saulo Georges
== END 2017-07-28 11:00 | disposition left against medical advice (07) ==
LOC: 2SOUTHHOLD 09:28 → EMEROO 09:28 → 2SOUTHHOLD 13:27
PROVIDERS: ADMIT Hospitalist; ATTEND Hospitalist